=== PATIENT | female | born 1975 | race Two or more races ===

== ENCOUNTER 2017-01-28 17:20 | Emergency (ER) | payer SELFPAY ==
[~2017-01-28] VITALS: Ht 175.3 cm; Wt 73.0 kg
[2017-01-28 17:22] VITALS: BP 119/70
[2017-01-28] MEDS ORDERED: ACETAMINOPHEN WITH CODEINE 300/30MG TABLET PO ONE (18:00)
== END 2017-01-28 19:31 | disposition home or self-care (01) ==
LOC: ER 17:21
DX: M17.0 Bilateral primary osteoarthritis of knee (principal); F17.210 Nicotine dependence, cigarettes, uncomplicated; F12.10 Cannabis abuse, uncomplicated; Z88.6 Allergy status to analgesic agent; Z98.890 Other specified postprocedural states
CPT/HCPCS: 73562; 81025; 99284

== ENCOUNTER 2024-04-15 19:06 | Emergency (ER) | payer BC, MEDICAID ==
[~2024-04-15] VITALS: Ht 175.3 cm; Wt 82.0 kg
[2024-04-15 19:08] VITALS: BP 115/76; PULSE 85; RESP 16; TEMP 97.6; O2SAT 96
== END 2024-04-15 20:41 | disposition left against medical advice (07) ==
LOC: ER 19:06
DX: R53.1 Weakness (principal); R11.2 Nausea with vomiting, unspecified; J45.909 Unspecified asthma, uncomplicated; Z98.890 Other specified postprocedural states
CPT/HCPCS: 99283

== ENCOUNTER 2024-08-04 07:11 | Inpatient (IN) | payer BC, MEDICAID ==
[~2024-08-04] VITALS: Ht 176.5 cm; Wt 82.6 kg
[~2024-08-04 07:11] MED LIST: ONDA-239 PO
[2024-08-04 07:43] LABS: BASOPHILS % 2.1 % (0.0-2.0); DIFFERENTIAL COMMENT 0; EOSINOPHILS % 4.1 % (0.0-5.0); HEMATOCRIT. 43.8 % (36.0-48.0); HEMOGLOBIN. 14.5 g/dL (12.0-16.0); LYMPHOCYTES % 42.3 % (20.0-50.0); MEAN CORPUSCULAR HEMOGLOBIN 33.1 pg (28.0-32.0); MEAN CORPUSCULAR VOLUME 100.3 fL (81.0-99.0); MEAN PLATELET VOLUME 8.4 fl (7.4-10.4); MONOCYTES % 13.5 % (2.0-8.0); PLATELET 212 x1000/uL (130-400); RED BLOOD CELL COUNT 4.37 mill/uL (4.2-5.4); RED CELL DISTRIBUTION WIDTH 20.9 % (11.6-14.6); WHITE BLOOD COUNT 6.5 x1000/uL (4.5-11.0)
[2024-08-04 07:51] LABS: CHLORIDE 99 mEq/L (98-107); SODIUM 139 mEq/L (136-145)
[2024-08-04 07:52] LABS: CALCIUM 9.1 mg/dL (8.7-10.4); CARBON DIOXIDE 23 mEq/L (21-32)
[2024-08-04 07:57] LABS: CREATININE 0.6 mg/dL (0.6-1.0); GLUCOSE 95 mg/dL (70-105)
[2024-08-04 07:59] LABS: TROPONIN I HIGH SENSITIVITY < 4 ng/L (3.0-34); UREA NITROGEN BLOOD < 5 mg/dL (9-23)
[2024-08-04 08:01] LABS: POTASSIUM 2.8 mEq/L (3.5-5.1)
[2024-08-04] MEDS: KCL 20MEQ/100ML PREMIX 100 ML IV SCH (12:40)
[2024-08-04] MEDS ORDERED: MAGNESIUM/ALUMINUM HYDROXIDE/SIMETHICONE 30ML UDC PO PRN (16:45)
[2024-08-04] MEDS ORDERED: IPRATROPIUM/ALBUTEROL 0.5-3(2.5)MG/3ML NEB HHN PRN (16:45)
[2024-08-04] MEDS ORDERED: ONDANSETRON HCL 4MG/2ML INJ IV PRN (16:45)
[2024-08-04] MEDS ORDERED: DOCUSATE SODIUM 100MG CAPSULE PO PRN (16:45)
[2024-08-04] MEDS ORDERED: KETOROLAC 15MG/ML VIAL IV PRN (16:45)
[2024-08-04] MEDS ORDERED: CLONIDINE 0.1MG TABLET PO PRN (16:45)
[2024-08-04] MEDS ORDERED: MORPHINE SULFATE 2 MG/ML INJ (NOT FOR IM USE) IV PRN (16:45)
[2024-08-04] MEDS ORDERED: GUAIFENESIN 200MG/10ML SUGAR FREE UDC PO PRN (16:45)
[2024-08-04] MEDS ORDERED: NITROGLYCERIN 0.4MG TABLET SL SL PRN (17:00)
[2024-08-04] MEDS ORDERED: NALOXONE HCL 0.4MG/ML VIAL IV PRN (17:00)
[2024-08-04] MEDS: SODIUM CHLORIDE 0.9% 1,000 ML IV SCH (18:15)
[2024-08-04 18:23] LABS: BG BASE EXCESS 0.3 mmol/L (-2.0-3.0); BG CARBOXYHEMOGLOBIN 1.4 % (0.5-1.5); BG DEOXYHEMOGLOBIN 3.5 % (0.0-5.0); BG FRACTION INSPIRED OXYGEN 21; BG HCO3 ACT 23.6 mmol/L (21.0-28.0); BG METHEMOGLOBIN 0.1 % (0.5-1.5); BG OXYGEN SATURATION 96.4 % (94.0-98.0); BG PCO2 34.1 mmHg (32.0-45.0); BG PH 7.458 (7.350-7.450); BG PO2 89.6 mmHg (83.0-108.0); BG SAMPLE SITE RIGHT RADIAL; BG TOTAL HEMOGLOBIN 14.3 g/dL (12.0-16.0); BG VENT MODE ROOM AIR
[2024-08-04] MEDS: ENOXAPARIN 40MG/0.4ML SYR SUBCUT SCH (18:27)
[2024-08-04] MEDS: LORAZEPAM 0.5MG TABLET PO PRN (19:11)
[2024-08-04 19:15] LABS: CLARITY URINE CLOUDY (CLEAR); COLOR URINE DARK YELLOW (YELLOW); GLUCOSE URINE NEGATIVE (NEGATIVE); KETONES URINE 1+ (NEGATIVE); LEUKOCYTE ESTERASE URINE NEGATIVE (NEGATIVE); NITRITE URINE NEGATIVE (NEGATIVE); OCCULT BLOOD URINE NEGATIVE (NEGATIVE); PROTEIN URINE 1+ (NEGATIVE); SPECIFIC GRAVITY URINE 1.016 (1.005-1.030)
[2024-08-04 20:00] VITALS: BP 120/68; PULSE 111; RESP 16; TEMP 36.9474; O2SAT 98
[2024-08-04 20:15] LABS: BACTERIA URINE 3+; RBC URINE NONE SEEN /hpf (0-2); SQUAMOUS EPITHELIAL CELL URINE 1+ /lpf (RARE/1+); WBC URINE NONE SEEN /hpf (0-2)
[2024-08-04 22:05] LABS: CHLORIDE 101 mEq/L (98-107); POTASSIUM 3.3 mEq/L (3.5-5.1); SODIUM 136 mEq/L (136-145)
[2024-08-04 22:06] LABS: CALCIUM 9.1 mg/dL (8.7-10.4); CARBON DIOXIDE 26 mEq/L (21-32)
[2024-08-04 22:11] LABS: CREATININE 0.7 mg/dL (0.6-1.0); GLUCOSE 91 mg/dL (70-105)
[2024-08-04 22:13] LABS: PHOSPHORUS 3.9 mg/dL (2.5-4.9); TROPONIN I HIGH SENSITIVITY < 4 ng/L (3.0-34); UREA NITROGEN BLOOD < 5 mg/dL (9-23)
[2024-08-04 22:14] LABS: CREATINE KINASE 92 IU/L (34-145)
[2024-08-05] VITALS (7 sets, daily range): BP systolic 121–144; BP diastolic 71–87; PULSE 72–97; RESP 16–18; TEMP 36.50292–37.28076; O2SAT 98–100
[2024-08-05] MEDS: MAGNESIUM 4 G PREMIX 100 ML IV SCH (02:32)
[2024-08-05] MEDS: KCL 20MEQ/100ML PREMIX 100 ML IV SCH (02:32)
[2024-08-05 04:06] LABS: BASOPHILS % 3.6 % (0.0-2.0); EOSINOPHILS % 1.8 % (0.0-5.0); HEMATOCRIT. 37.3 % (36.0-48.0); HEMOGLOBIN. 12.5 g/dL (12.0-16.0); LYMPHOCYTES % 27.8 % (20.0-50.0); MEAN CORPUSCULAR HEMOGLOBIN 33.5 pg (28.0-32.0); MEAN CORPUSCULAR HGB CONC 33.5 g/dL (31.0-37.0); MEAN PLATELET VOLUME 9.2 fl (7.4-10.4); MONOCYTES % 15.9 % (2.0-8.0); NEUTROPHILS % 50.9 % (40.0-76.0); PLATELET 168 x1000/uL (130-400); RED BLOOD CELL COUNT 3.73 mill/uL (4.2-5.4); RED CELL DISTRIBUTION WIDTH 21.1 % (11.6-14.6); WHITE BLOOD COUNT 6.1 x1000/uL (4.5-11.0)
[2024-08-05 04:12] LABS: CHLORIDE 100 mEq/L (98-107); POTASSIUM 3.3 mEq/L (3.5-5.1); SODIUM 136 mEq/L (136-145)
[2024-08-05 04:13] LABS: CALCIUM 9.1 mg/dL (8.7-10.4); CARBON DIOXIDE 28 mEq/L (21-32)
[2024-08-05 04:14] LABS: DIFFERENTIAL COMMENT 1
[2024-08-05 04:18] LABS: CREATININE 0.6 mg/dL (0.6-1.0); GLUCOSE 98 mg/dL (70-105); TRIGLYCERIDE 58 mg/dL (0-150); UREA NITROGEN BLOOD 6 mg/dL (9-23)
[2024-08-05 04:19] LABS: LDL CHOLESTEROL 53 mg/dL (5-100)
[2024-08-05 04:20] LABS: CHOLESTEROL 177 mg/dL (<200); CREATINE KINASE 91 IU/L (34-145); HDL CHOLESTEROL 94 mg/dL (>65)
[2024-08-05 04:22] LABS: T4 FREE 1.17 ng/dL (0.89-1.76); THYROID STIMULATING HORMONE 2.62 uIU/mL (0.55-4.78)
[2024-08-05] MEDS: POTASSIUM CHLORIDE 20MEQ TABLET SR PO SCH (11:01)
[2024-08-05] MEDS: ASPIRIN 81MG TABLET PO SCH (11:01)
[2024-08-05] MEDS: PANTOPRAZOLE SODIUM 40 MG/VIAL IV SCH (11:01)
[2024-08-06] VITALS (7 sets, daily range): BP systolic 93–158; BP diastolic 64–99; PULSE 77–85; RESP 18–20; TEMP 36.114–37.00296; O2SAT 97–100
[2024-08-06 08:25] LABS: BASOPHILS % 1.9 % (0.0-2.0); DIFFERENTIAL COMMENT 0; EOSINOPHILS % 4.3 % (0.0-5.0); HEMATOCRIT. 35.1 % (36.0-48.0); HEMOGLOBIN. 11.6 g/dL (12.0-16.0); LYMPHOCYTES % 33.7 % (20.0-50.0); MEAN CORPUSCULAR HEMOGLOBIN 33.5 pg (28.0-32.0); MEAN CORPUSCULAR VOLUME 101.5 fL (81.0-99.0); MEAN PLATELET VOLUME 9.7 fl (7.4-10.4); MONOCYTES % 13.8 % (2.0-8.0); NEUTROPHILS % 46.3 % (40.0-76.0); PLATELET 151 x1000/uL (130-400); RED BLOOD CELL COUNT 3.46 mill/uL (4.2-5.4); RED CELL DISTRIBUTION WIDTH 20.8 % (11.6-14.6); WHITE BLOOD COUNT 5.2 x1000/uL (4.5-11.0)
[2024-08-06 08:26] LABS: CALCIUM 8.6 mg/dL (8.7-10.4); CARBON DIOXIDE 27 mEq/L (21-32); CHLORIDE 105 mEq/L (98-107); POTASSIUM 3.5 mEq/L (3.5-5.1); SODIUM 138 mEq/L (136-145)
[2024-08-06 08:31] LABS: CREATININE 0.5 mg/dL (0.6-1.0)
[2024-08-06 08:32] LABS: GLUCOSE 98 mg/dL (70-105)
[2024-08-06 08:56] LABS: UREA NITROGEN BLOOD < 5 mg/dL (9-23)
[2024-08-06] MEDS: POTASSIUM CHLORIDE 20MEQ TABLET SR PO NR (13:35)
[2024-08-06] MEDS: MAGNESIUM 4 G PREMIX 100 ML IV NR (14:09)
== END 2024-08-06 19:58 | disposition home or self-care (01) | DRG 425 ==
LOC: ER 07:11 → EDBEDREQ 10:24 → 5WST 18:27 → 8WST 08-05 09:24
PROVIDERS: ADMIT Internal Medicine; ATTEND Internal Medicine
DX: E87.6 Hypokalemia (principal); E66.9 Obesity, unspecified; E83.42 Hypomagnesemia; I10 Essential (primary) hypertension; J45.909 Unspecified asthma, uncomplicated; M13.88 Other specified arthritis, other site; F17.200 Nicotine dependence, unspecified, uncomplicated; I49.3 Ventricular premature depolarization; R11.2 Nausea with vomiting, unspecified; F41.9 Anxiety disorder, unspecified; Z98.891 History of uterine scar from previous surgery; Z79.82 Long term (current) use of aspirin; Z88.6 Allergy status to analgesic agent; Z68.26 Body mass index [BMI] 26.0-26.9, adult
CPT/HCPCS: 36415; 36600; 71045; 80048; 80061; 81003; 82375; 82550; 82805; 83735; 83880; 84100; 84439; 84443; 84484; 85025; 93005; 99291; J1650; J2470; J3475; J3480